=== PATIENT | male | born 1950 | race Caucasian/White ===

== ENCOUNTER 2018-04-13 08:51 | Emergency (ER) | payer OTHER ==
[2018-04-13] MEDS: KETOROLAC 30 MG INJ IM (10:41)
== END 2018-04-13 11:58 | disposition home or self-care (01) ==
LOC: FTE 08:51
DX: M47.816 Spondylosis without myelopathy or radiculopathy, lumbar region (principal); I10 Essential (primary) hypertension; E11.9 Type 2 diabetes mellitus without complications
CPT/HCPCS: 72100; 96372; 99284-25